=== PATIENT | male | born 1945 | race Caucasian/White ===

== ENCOUNTER 2017-04-29 15:45 | Emergency (ER) | payer OTHER, MEDICARE ==
[~2017-04-29] VITALS: Ht 170.2 cm; Wt 107.2 kg
[~2017-04-29 15:45] MED LIST: ADVAIR HFA120 INHALA IH; ALDACTONE25 MG PO; ASPIR 8181 M1 PO; ASPIRIN81 M1 PO; ATROVENT H200 INHALA IH; AZITHROMYCIN500 M1 PO; BAYER CHEWABLE81 MG PO; CHILD ASPIRIN81 M1 PO; COZAAR25 MG PO; DIOVAN80 MG PO; FLOMAX0.4 MG PO; LANTUS 3 M100 UNITS/ PO; LANTUS 3 M100 UNITS1 SC; LASIX40 MG PO; LOPERAMIDE2 MG PO; NOVOLOG PE100 UNITS/ SC; NOVOLOG100 UNIT/3 SQ; PREDNISONE10 MG PO; VENTOLIN HFA18 GM IH
[2017-04-29 17:05] LABS: HEMATOCRIT 34.7 % (38.0-50.0); MCH 32.5 PG (29.0-34.0); MCHC 32.9 G/DL (30.0-36.0); MCV 98.9 FL (86-99); MEAN PLAT.VOLUME 10.2 uM^3 (9.0-12.4); PLATELET COUNT 133 K/uL (156-360); RBC DIS.WIDTH-CV 12.4 % (11.8-14.6); RBC DIS.WIDTH-SD 45.1 % (39-53); RED BLOOD COUNT 3.51 M/uL (4.00-5.50)
[2017-04-29 17:14] LABS: CHLORIDE 94 mEq/L (99-109); POTASSIUM 3.6 mEq/L (3.7-5.4); SODIUM 140 mEq/L (136-147)
[2017-04-29 17:16] LABS: GLUCOSE 186 mg/dL (70-99)
[2017-04-29 17:18] LABS: ANION GAP 12 MEQ/L (2-14)
[2017-04-29 17:20] LABS: GFR ESTIMATE (CALCULATED) 31 mL/min/ (58.99-99999)
[2017-04-29 17:21] LABS: UREA NITROGEN (BUN) 25 mg/dL (9-23)
[2017-04-29] MEDS ORDERED: AUGMENTIN500 MG PO (18:36)
[2017-04-29 23:58] VITALS: BP 129/73
== END 2017-04-30 00:05 | disposition home or self-care (01) ==
LOC: EME 15:45
PROVIDERS: Emergency Medicine Emergency Medical Services
DX: L03.115 Cellulitis of right lower limb (principal); E11.22 Type 2 diabetes mellitus with diabetic chronic kidney disease; I87.2 Venous insufficiency (chronic) (peripheral); J44.9 Chronic obstructive pulmonary disease, unspecified; I12.9 Hypertensive chronic kidney disease with stage 1 through stage 4 chronic kidney disease, or unspecified chronic kidney disease; N18.9 Chronic kidney disease, unspecified; Z79.4 Long term (current) use of insulin; Z79.82 Long term (current) use of aspirin; Z99.81 Dependence on supplemental oxygen; F17.200 Nicotine dependence, unspecified, uncomplicated
CPT/HCPCS: 80048; 85027; 85379; 93971; J0295; J2270; J3370; J7050; J7644